=== PATIENT | female | born 1975 | race Caucasian/White ===

== ENCOUNTER 2021-03-02 09:17 | Outpatient (CLI) | payer OTHER, SELFPAY ==
--- NOTE | ~2021-03-02 | MM_ITS ---
EXAMINATION: MM screening [facility] w [facility]ionne HISTORY: Screening mammogram TECHNIQUE: Craniocaudal and mediolateral oblique 3-D tomosynthesis images were obtained and synthetic 2-D images were generated. CAD analysis was submitted and interpreted. COMPARISON: 09/03/2019 BREAST PARENCHYMAL COMPOSITION: There are scattered areas of fibroglandular density. FINDINGS: There is no evidence of suspicious mass, calcification, or architectural distortion to sugg est malignancy in either breast. There has been no suspicious interval change. IMPRESSION: 1. No mammographic evidence of malignancy. 2. Recommend routine screening mammography in one year. BI-RADS Category 1: Negative Reviewed, dictated and finalized at location A.
== END 2021-03-02 09:18 | disposition home or self-care (01) ==
LOC: ANHIMG 09:20
PROVIDERS: PCP Obstetrics & Gynecology; Visit Provider Obstetrics & Gynecology
DX: Z12.31 Encounter for screening mammogram for malignant neoplasm of breast (principal)
CPT/HCPCS: 77063; 77067

== ENCOUNTER 2022-01-20 10:03 | Emergency (ER) | payer OTHER, SELFPAY ==
--- NOTE | 2022-01-20 10:16 | ED.BACK ---
HPI - Back Pain/Injury General Chief Complaint: Back Pain/Injury <Cedric Heath APRN - Last Filed: 01/20/22 11:35> Stated Complaint: back pain <Cedric Heath APRN - Last Filed: 01/20/22 11:35> Time Seen by Provider: 01/20/22 10:16 <Cedric Heath APRN - Last Filed: 01/20/22 11:35> Source: patient <Cedric Heath APRN - Last Filed: 01/20/22 11:35> Mode of arrival: ambulatory <Cedric Heath APRN - Last Filed: 01/20/22 11:35> Limitations: no limitations <Cedric Heath APRN - Last Filed: 01/20/22 11:35> History of Present Illness HPI Narrative: Ms. Narvaez is a 46-year-old female patient presenting to the clinic today with complaints of back pain x1 day. She reports she reports she first noticed this when sitting at the dinner table yesterday and her back began to tense up and she felt like she was going to pass out. Reports the pain as a sharp tingling pain across her low back that tightens when she moves. Rates pain at a 6 out of 10 currently. Is worse with sitting, walking, and laying however standing seems to alleviate symptoms. Is unable to bend forward due to the discomfort. She denies any urinary symptoms or constipation. Last bowel movement was yesterday and was normal for her. Denies any fever or chills. She denies any saddle anesthesia or loss of bowel or bladder. <Cedric Heath APRN - Last Filed: 01/20/22 11:35> Related Data Allergies/Adverse Reactions: Allergies Allergy/AdvReac Type Severity Reaction Status Date / Time Penicillins Allergy Unknown MAKES HER Verified 01/20/22 10:33 FAINT <Cedric Heath APRN - Last Filed: 01/20/22 11:35> Review of Systems Review of Systems: Pertinent positives per HPI. Patient denies any fever, chills, rash, headache, visual changes, dizziness, cough, runny nose, sore throat, shortness of breath, chest pain, palpitations, nausea, vomiting, diarrhea, constipation, abdominal pain, or any urinary issues. <Cedric Heath APRN - Last Filed: 01/20/22 11:35> PMFSH Comments At the time of my signature, I reviewed and agree with the nursing past medical, surgical, social, and family history. There is no relevant family history pertinent to the patient complaint. <Cedric Heath APRN - Last Filed: 01/20/22 11:35> Exam Narrative: General: Well-developed, well nourished, in no apparent distress Head: Normocephalic, atraumatic Cardio: Regular rate and rhythm, s1 and s2 normal, no murmur appreciated. Resp: Clear to auscultation bilaterally, no rhonchi, rales, wheezing or rubs. Abdomen: Soft, pliable, nondistended, bowel sounds present in all 4 quadrants, no pain to palpation, no organomegaly,no CVAT tenderness, no suprapubic tenderness. Musculoskeletal: No deformity, mild tenderness to palpation across the low back, minimal flexion of lumbar spine due to pain, muscle strength strong and equal, patellar reflexes 2/4,peripheral pulse strong, no edema, no cyanosis, no discomfort with straight leg test bilaterally, pain only going across back-does not radiate into lower extremities or into the abdomen, normal gait and station. <Cedric Heath APRN - Last Filed: 01/20/22 11:35> Course Course Emergency Course: Portions of this record may have been created with voice recognition software. <Cedric Heath APRN - Last Filed: 01/20/22 11:35> Level of Care: Express Care Visit <Cedric Heath APRN - Last Filed: 01/20/22 11:35> Vital Signs Vital signs: Vital Signs Temperature 36.6 C 01/20/22 10:27 Pulse Rate 100 01/20/22 10:27 Respiratory Rate 18 01/20/22 10:27 Blood Pressure 128/86 01/20/22 10:27 Pulse Oximetry 100 01/20/22 10:27 Temperature 36.6 C 01/20/22 10:27 Pulse Rate 100 01/20/22 10:27 Respiratory Rate 18 01/20/22 10:27 Blood Pressure 128/86 01/20/22 10:27 Pulse Oximetry
[2022-01-20 10:27] VITALS: BP 128/86; PULSE 100; RESP 18; TEMP 36.6; O2SAT 100
== END 2022-01-20 11:06 | disposition home or self-care (01) ==
PROVIDERS: Emergency Provider Nurse Practitioner Family; PCP Internal Medicine
DX: S39.012A Strain of muscle, fascia and tendon of lower back, initial encounter (principal); X58.XXXA Exposure to other specified factors, initial encounter; N30.01 Acute cystitis with hematuria
CPT/HCPCS: 81003; 87077; 87086; 87186; 99213; G0463

== ENCOUNTER 2022-05-03 08:02 | Outpatient (CLI) | payer OTHER, SELFPAY ==
--- NOTE | ~2022-05-03 | MM_ITS ---
EXAMINATION: MM screening [facility] BI w dionne HISTORY: Screening mammogram TECHNIQUE: Craniocaudal and mediolateral oblique 3-D tomosynthesis images were obtained and synthetic 2-D images were generated. CAD analysis was submitted and interpreted. COMPARISON: 03/02/2021, 09/03/2019 BREAST PARENCHYMAL COMPOSITION: The breasts are heterogeneously dense, which may obscure small masses . FINDINGS: There is no suspicious mass, calcification, or architectural distortion to suggest malignan cy in either breast. There has been no suspicious interval change. IMPRESSION: 1. No mammographic evidence of malignancy. 2. Recommend routine screening mammography in one year. BI-RADS Category 1: Negative Reviewed, dictated and finalized at location A.
== END 2022-05-03 08:03 | disposition home or self-care (01) ==
LOC: ANHIMG 08:04
PROVIDERS: PCP Internal Medicine; Visit Provider Obstetrics & Gynecology
DX: Z12.31 Encounter for screening mammogram for malignant neoplasm of breast (principal)
CPT/HCPCS: 77063; 77067

== ENCOUNTER 2023-08-06 12:52 | Outpatient (CLI) | payer BC, OTHER, SELFPAY ==
--- NOTE | ~2023-08-06 | MM_ITS ---
EXAMINATION: MM screening [facility] BI w dionne HISTORY: Screening TECHNIQUE: Craniocaudal and mediolateral oblique 3-D tomosynthesis images were obtained and synthetic 2-D images were generated. CAD analysis was submitted and interpreted. COMPARISON: Comparison to multiple prior studies sequentially, with oldest reviewed study dated 08/22. BREAST PARENCHYMAL COMPOSITION: There are scattered areas of fibroglandular density. FINDINGS: There is no evidence of suspicious mass, calcification, or architectural distortion to sugg est malignancy in either breast. There has been no suspicious interval change. IMPRESSION: 1. No mammographic evidence of malignancy. 2. Recommend routine screening mammography in one year. BI-RADS Category 1: Negative Reviewed, dictated and finalized at location A.
== END 2023-08-06 12:53 ==
PROVIDERS: PCP Obstetrics & Gynecology; Visit Provider Obstetrics & Gynecology
DX: Z12.31 Encounter for screening mammogram for malignant neoplasm of breast (principal)
CPT/HCPCS: 77063; 77067

== ENCOUNTER 2024-08-13 11:07 | Outpatient (CLI) | payer OTHER, BC, SELFPAY ==
--- NOTE | ~2024-08-13 | MM_ITS ---
EXAMINATION: MM screening [facility] w [facility]ionne HISTORY: Screening TECHNIQUE: Craniocaudal and mediolateral oblique 3-D tomosynthesis images were obtained and synthetic 2-D images were generated. CAD analysis was submitted and interpreted. COMPARISON: Comparison to multiple prior studies sequentially, with oldest reviewed study dated 08/22. BREAST PARENCHYMAL COMPOSITION: Dense: The breasts are heterogeneously dense, which may obscure small masses FINDINGS: There is no evidence of suspicious mass, calcification, or architectural distortion to sugg est malignancy in either breast. There has been no suspicious interval change. IMPRESSION: 1. No mammographic evidence of malignancy. 2. Recommend routine screening mammography in one year. BI-RADS Category 1: Negative Reviewed, dictated and finalized at location B.
== END 2024-08-13 11:08 | disposition home or self-care (01) ==
LOC: MICIMG 11:10
PROVIDERS: PCP Obstetrics & Gynecology; Visit Provider Obstetrics & Gynecology
DX: Z12.31 Encounter for screening mammogram for malignant neoplasm of breast (principal)
CPT/HCPCS: 77063; 77067

== ENCOUNTER 2025-08-17 10:54 | Outpatient (CLI) | payer OTHER, BC, SELFPAY ==
--- NOTE | ~2025-08-17 | MM_ITS ---
EXAMINATION: MM screening [facility] BI w dionne HISTORY: Screening TECHNIQUE: Craniocaudal and mediolateral oblique 3-D tomosynthesis images were obtained and synthetic 2-D images were generated. CAD analysis was submitted and interpreted. COMPARISON: Comparison to multiple prior studies sequentially, with oldest reviewed study dated 09/03/2019. BREAST PARENCHYMAL COMPOSITION: Dense: The breasts are heterogeneously dense, which may obscure small masses FINDINGS: There is no evidence of suspicious mass, calcification, or architectural distortion to suggest malignancy in either breast. There has been no suspicious interval change. IMPRESSION: 1. No mammographic evidence of malignancy. 2. Recommend routine screening mammography in one year. BI-RADS Category 1: Negative Reviewed, dictated and finalized at location B.
== END 2025-08-17 10:55 | disposition home or self-care (01) ==
PROVIDERS: PCP Registered Nurse; Visit Provider Obstetrics & Gynecology
DX: Z12.31 Encounter for screening mammogram for malignant neoplasm of breast (principal)
CPT/HCPCS: 77063; 77067